=== PATIENT | male | born 1955 ===

== ENCOUNTER → 2025-05-01 | Outpatient (CLI) | payer OTHER ==
[2025-05-01 20:15] LABS: Creatinine, Urine Random 106.0 mg/dL (27.00-270.00); Microalb/Creat Ratio UR, Rand 47.924 mg/g (0.000-30.000); Microalbumin, Random Urine 50.8 mg/L (0.000-20.000)
== END ==
LOC: LAB SHORT 13:00 → LAB 13:00
PROVIDERS: Physician Assistant
DX: N18.31 Chronic kidney disease, stage 3a (principal)
CPT/HCPCS: 82043; 82570